=== PATIENT | female | born 1970 | race Caucasian/White ===

== ENCOUNTER → 2021-06-10 08:59 | Outpatient (BNVA) | payer MEDICARE, MEDICAID, SELFPAY | PROVIDERS: PCP Physician Assistant; Visit Provider Physician Assistant | DX: Z13.89 Encounter for screening for other disorder (principal) | CPT/HCPCS: Q3014 ==

== ENCOUNTER 2021-09-11 09:53 | Day surgery (SDC) | payer MEDICARE, MEDICAID, SELFPAY ==
[2021-09-05 09:44] VITALS: BMI 34.3
--- NOTE | 2021-09-10 10:06 | HO.ANESPROP2 ---
Documented by User: Sherron Zimmerman NP 09/10/21 10:08 HPI - Anesthesia Eval Consult details Narrative: 50yo F for Upper Endoscopy and Colonoscopy PMFSH Active Problems Active Problems: All Active Problems (Updated 09/05/21 @ 09:43 by Génesis Lagunas RN) WILLIAM (generalized anxiety disorder) (Acute) Migraines (Acute) GERD (gastroesophageal reflux disease) (Acute) Smoker (Acute) Seizure disorder (Acute) HLD (hyperlipidemia) (Acute) Screening for diabetes mellitus (DM) (Acute) Colon cancer screening (Acute) Screening mammogram, encounter for (Acute) Annual physical exam (Acute) Unknown varicella vaccination status (Acute) Obese (Acute) Lumbar back pain (Acute) Encounter for screening colonoscopy (Acute) Dysphagia (Acute) Acne rosacea (Acute) Pulmonary nodule (Acute) KEVIN (obstructive sleep apnea) (Acute) Breast cancer screening (Acute) Past Medical History Medical History Aneurysm Anxiety COVID-19 vaccine series completed Dysphagia Elevated cholesterol GERD (gastroesophageal reflux disease) Migraine Personal history of tuberculosis Pulmonary nodule Seizures Sleep apnea Family History Family History Father Medical history unknown Mother Hypertension Lymphoma Maternal Grandmother Diabetes Maternal Grandfather No problems noted. Surgical History Surgical History Amputation of toe Aneurysm H/O abdominal hysterectomy History of section History of surgery Social History Social History Housing: House Alcohol intake: current Alcohol intake frequency: holidays/special occasions only Alcohol type: hard liquor Patient Tobacco Use Status: Current someday Tobacco user Tobacco use type: Cigarette Cigarettes Per Day: 4 Second Hand Smoke Exposure: No Use of substances other than those prescribed or required for medical reasons: Yes Substance Use Frequency: Occasionally Have you been hit, kicked, punched, or otherwise hurt by someone within the past year? If so, by whom?: No Are you DNR?: No Advance Directives: No Advance Directives Information Provided: Yes (brochure mailed) Advance Directives on File: No Recently lost weight without trying: No Eating poorly because of decreased appetite: No Nutrition Risks: No Nutritional Risk Poor oral hygiene: No (upper & lower full dentures) service: No Current occupational status: disabled Cognitive needs: No Hearing needs: No Vision needs: No Meds Allergies Allergy/AdvReac Type Severity Reaction Status Date / Time aspirin [ASA] Allergy Intermediate RASH Verified 09/03/21 14:19 grapefruit [GRAPEFRUIT] Allergy Intermediate INTERACTS Verified 09/03/21 14:19 W/MED. Home Medications Medication Instructions Recorded Confirmed Last Taken Type lamotrigine 100 mg tablet 200 mg PO BID 09/02/20 09/05/21 Unknown History gabapentin 600 mg tablet 600 mg PO TID 03/03/21 09/05/21 Unknown History Exam Exam Date and Time: September 10, 2021 1006 Height,Weight and Vital Signs: Height 5 ft 5.3 in Weight 94.461 kg Assessment and Plan Assessment Anesthesia Assessment: Chart Reviewed Documented by User: Lourdes Hodge MD 09/11/21 10:48 [facility] Past Medical History Medical History Aneurysm Anxiety COVID-19 vaccine series completed Dysphagia Elevated cholesterol GERD (gastroesophageal reflux disease) Migraine Personal history of tuberculosis Pulmonary nodule Seizures Sleep apnea Functional capacity: independent ambulation Patient : No Family History Family History Father Medical history unknown Mother Hypertension Lymphoma Maternal Grandmother Diabetes Maternal Grandfather No problems noted. Family history of problems with anesthesia: No Surgical History Surgical History Amputation of toe Aneurysm H/O abdominal hysterectomy History of section History of surgery History of Problems with Anesthesia: No Social History Social History Housing: House Alcohol intake: current Alcohol intake frequency: holidays/special occasions only Alcohol type: hard liquor Patient Tobacco Use Status: Current someday Tobacco user Tobacco use type: Cigarette Cigarettes Per Day: 4 Second Hand Smoke Exposure: No Use of substances other than those prescribed or required for medical reasons: Yes Substance Use Frequency: Occasionally Have you been hit, kicked, punched, or otherwise hurt by someone within the past year? If so, by whom?: No Are you DNR?: No Advance Directives: No Advance Directives Information Provided: Yes (brochure mailed) Advance Directives on File: No Recently lost weight without trying: No Eating poorly because of decreased appetite: No Nutrition Risks: No Nutritional Risk Poor oral hygiene: No (upper & lower full dentures) service: No Current occupational status: disabled Cognitive needs: No Hearing needs: No Vision needs: No Meds Allergies Allergy/AdvReac Type Severity Reaction Status Date / Time aspirin [ASA] Allergy Intermediate RASH Verified 09/03/21 14:19 grapefruit [GRAPEFRUIT] Allergy Intermediate INTERACTS Verified 09/03/21 14:19 W/MED. Home Medications Medication Instructions Recorded Confirmed Last Taken Type lamotrigine 100 mg tablet 200 mg PO BID 09/02/20 09/05/21 Unknown History gabapentin 600 mg tablet 600 mg PO TID 03/03/21 09/05/21 Unknown History Exam Airway Mallampati Class: II TM Dist: >3cm Neck ROM: Full Partial: Upper and Lower Heart: RRR Lungs: CTA Assessment and Plan Final Anesthetic Review Family History of Problems with Anesthesia: No History of Problems with Anesthesia: No ASA Class: III Final Preanesthetic Review: No Changes in Pt Med Stat, Meds/Allgs Chart Reviewed, Consent Obtained/Reviewed and Anes Risks/Benef Reviewed Patient Risk: Intermediate Procedure Risk: Low Anesthetic Plan Anesthetic Plan: MAC: Disposition: Standard PACU
[2021-09-11 10:02] VITALS: BP 124/81; PULSE 74; RESP 16; TEMP 36.2; O2SAT 96; BMI 31.3
--- NOTE | 2021-09-11 10:09 | MHC.SHP ---
Pre-Procedural Eval Section A Date of Service: 09/11/21 Section B Chief Complaint: GERD,screening Relevant Family History (Specify if Yes): No Relevant Social History: Tobacco Use (THC use ) Present Medications: see Short Stay Collaborative assessment Medical History: Significant History (Aneurysm Anxiety COVID-19 vaccine series completed Dysphagia Elevated cholesterol GERD (gastroesophageal reflux disease) Migraine Personal history of tuberculosis Pulmonary nodule Seizures Sleep apnea) History of Previous Operations: Relevant previous surgery/procedure and date(s) (Amputation of toe Aneurysm H/O abdominal hysterectomy History of section History of surgery) Allergies: Allergies Allergy/AdvReac Type Severity Reaction Status Date / Time aspirin [ASA] Allergy Intermediate RASH Verified 09/03/21 14:19 grapefruit [GRAPEFRUIT] Allergy Intermediate INTERACTS Verified 09/03/21 14:19 W/MED. Review of Systems Sugical H&P ROS: Negative: Constitution, Cardiovascular, Respiratory, Neurological, Psychiatric, Hem-Onc, Allergic/Immunologic, Gastrointestinal, Genitourinary, Musculoskeletal, Integumentary, Endocrine and Eyes/Ears/Nose/Throat Exam Surgical H&P Exam: Normal: HEENT, Normal: Heart, Normal: Lungs, Normal: Extremities, Normal: Abdomen, Normal: Skin and Normal: Neurological Plan Diagnosis/Plan: Unchanged I have reviewed the history and physical and performed a pertinent physical examination on my patient. No changes have occurred unless specified.
[2021-09-11] MEDS: Lactated Ringers 1,000 ML 100 ML IVCONT (10:16)
--- NOTE | 2021-09-11 11:02 | PM.OP ---
Brief Operative Note Date of Service: 09/11/21 Pre-op diagnosis: GERD,screening Post-op diagnosis: same Procedure: see op note Surgeon: Antonio Hooks MD Anesthesia: MAC Was an Recordist Chief used for this Procedure?: No Estimated blood loss (mL): 0 Condition: stable Disposition: PACU
--- NOTE | 2021-09-11 11:03 | W.PM.OPN ---
Operative Note Operative Note Date of Service: 09/11/21 Narrative: Operative Information Procedure Description: EGD, Colonoscopy Indication: GERd, colon screening Anesthesia: MAC FLEXIBLE TRANSORAL UPPER GASTROINTESTINAL ENDOSCOPY AND COLONOSCOPY PROCEDURE NOTE UPPER ENDOSCOPY Consent: Indications for the procedure and potential complications of bleeding, perforation, reaction to medications and missed diagnosis were discussed with the patient and informed consent was obtained. Instrument: Olympus GIF H 190 J mid size upper endoscope Monitoring: Vital signs and clinical assessment, continuous EKG monitoring, Pulse oximetry, Carbon Dioxide monitoring and blood pressure monitoring were done throughout the procedure. Procedure: The patient was placed in the left lateral decubitis position and pre-procedure medications were administered and a bite block was placed. The endoscope was inserted into the mouth and advanced under direct vision to the third part of duodenum. A careful inspection was made as the upper endoscope was withdrawn including a retroflexed examination of the proximal stomach; Findings and interventions are described below. Findings: Larynx:normal Esophagus: GE junction at 34 cm, diaphragm hiatus at 37 cm, consistent with 3 cm sliding hiatal hernia, some ringing of the esophagus noted, bx taken from GEJ, distal and proximal esophagus in separate jars Stomach: Patchy erythema mucosa. Biopsies were obtained. Grade 2 flap valve on retroflexed examination of the cardia. Duodenum: Bulbar duodenitis, bx taken Intervention: Biopsies as noted above COLONOSCOPY Instrument: Olympus variable stiffness pediatric scope 190L Colonoscopy Monitoring: Vital signs and clinical assessment, continuous EKG monitoring, Pulse oximetry, Carbon Dioxide monitoring and blood pressure monitoring were done throughout the procedure. Colon withdrawal time was 17 minutes. Procedure: The patient was placed in the left lateral decubitis position and pre-procedure medications were administered. After a digital rectal examination of the ano-rectum, the video colonoscope was inserted into the rectum and advanced through the colon to the cecum/TI. The colonoscope was slowly withdrawn in a retrograde panoramic fashion and the colon mucosa was carefully examined including a retroflexed view of the rectum. Findings and interventions are described below. Procedure Difficulty:easy Findings: Terminal Ileum-normal Cecum:normal Ascending Colon: normal Transverse Colon -normal Descending Colon:normal Sigmoid Colon: normal Rectum: Retroflexion with moderate sized internal hemorrhoids, grade I, x 8 sessile polyps removed 8-10 mm in size using cold snare Anorectum - normal Colon preparation: [place] Bowel Preparation Scale Right colon; 2 Transverse colon: 3 Left colon; 3 (0 = Unprepared colon segment with mucosa not seen due to solid stool that cannot be cleared. 1 = Portion of mucosa of the colon segment seen, but other areas of the colon segment not well seen due to staining, residual stool and/or opaque liquid. 2 = Minor amount of residual staining, small fragments of stool and/or opaque liquid, but mucosa of colon segment seen well. 3 = Entire mucosa of colon segment seen well with no residual staining, small fragments of stool or opaque liquid) Impression and Post Procedure Diagnosis: Endoscopy Findings: gastritis duodenitis hiatal hernia Colonoscopy Findings: polyps internal hemorrhoids Plan: Await Pathology results Repeat Colonoscopy in 1-2 years due to polyp burden or earlier if clinically indicated High fiber diet leaflet avoid straining at stool, epsom salts and sitz bath, anusol supps or cream Reflux precautions smoking cessation advice consider PPI instead of H2 billy Above findings were reviewed with the patient and relevant handouts were provided if indicated.
[2021-09-11 11:30] VITALS: BP 114/77; PULSE 67; RESP 16; TEMP 36.4; O2SAT 96
[2021-09-11 11:45] VITALS: BP 120/70; PULSE 65; RESP 18; TEMP 36.1; O2SAT 95
--- NOTE | 2021-09-11 11:58 | HO.POSTANES ---
Post Anesthesia Evaluation Post Anesthesia Evaluation Vital Signs: Vital Signs Temp Pulse Resp BP Pulse Ox O2 Del Method 09/11/21 11:45 97 F 65 18 120/70 95 Room Air 09/11/21 11:30 97.5 F 67 16 114/77 96 Room Air 09/11/21 10:02 97.1 F 74 16 124/81 96 Room Air Anesthesia: Monitored Mental Status: Awake Pain Control: Satisfactory Nausea/Vomiting: None Hydration: Adequate Anesthesia-Related Issues: No Anes. Related Issues
== END 2021-09-11 12:20 | disposition home or self-care (01) ==
PROVIDERS: PCP Physician Assistant; Visit Provider Internal Medicine Gastroenterology
PROC: (CPT 45385; principal; 2021-09-11 11:00)
DX: Z12.11 Encounter for screening for malignant neoplasm of colon (principal); D12.8 Benign neoplasm of rectum; K64.0 First degree hemorrhoids; R13.10 Dysphagia, unspecified; K29.50 Unspecified chronic gastritis without bleeding; K29.80 Duodenitis without bleeding; K44.9 Diaphragmatic hernia without obstruction or gangrene; K21.9 Gastro-esophageal reflux disease without esophagitis; G47.33 Obstructive sleep apnea (adult) (pediatric); G40.909 Epilepsy, unspecified, not intractable, without status epilepticus; Z79.899 Other long term (current) drug therapy; Z88.8 Allergy status to other drugs, medicaments and biological substances; F17.210 Nicotine dependence, cigarettes, uncomplicated
CPT/HCPCS: 45385; 43239; 88305; 88342

== ENCOUNTER → 2021-09-25 11:04 | Outpatient (BNVA) | payer MEDICARE, MEDICAID, SELFPAY | PROVIDERS: PCP Physician Assistant; Visit Provider Physician Assistant | DX: K21.9 Gastro-esophageal reflux disease without esophagitis (principal); A04.8 Other specified bacterial intestinal infections; K63.5 Polyp of colon | CPT/HCPCS: 99212 ==

== ENCOUNTER → 2021-10-15 10:51 | Outpatient (REF) | payer MEDICARE, SELFPAY ==
--- NOTE | ~2021-10-15 | MM_ITS ---
EXAMINATION: MM SCREENING DIGITAL BREAST TOMOSYNTHESIS, BILATERAL CLINICAL INFORMATION: Screening. Asymptomatic. The lifetime risk of breast cancer based on the Tyrer-Cuzick Model is 4.9%. COMPARISON: Mammography: April 25, 2018 and studies dating back to December 25, 2005 TECHNIQUE: Digital breast tomosynthesis is performed in both the craniocaudal and mediolateral oblique views along with computer-aided detection (CAD). Synthesized 2D images are generated from the tomosynthesis. FINDINGS: The breasts are heterogeneously dense, which may obscure small masses (ACR BI-RADS breast composition Category c). There are no significant masses, abnormal calcifications, or other abnormalities. MM/MM tomosynthesis screening BI IMPRESSION: There are no significant changes from prior study. ASSESSMENT: BI-RADS 1: Negative RECOMMENDATION: Routine annual mammography screening. This patient's information was entered into a reminder system with a target due date for their next mammogram.
[2021-10-15 12:11] LABS: Hematocrit 40.6 % (37.0-47.0); Hemoglobin 13.7 g/dl (12.0-16.0); Mean Corpuscular HGB Conc 33.7 g/dl (31.0-35.0); Mean Corpuscular Hemoglobin 30.4 pg (27.0-33.0); Mean Platelet Volume 9.7 fL (9.4-12.3); Platelet Count 279 X10*3/uL (160-400); Red Blood Count 4.51 X10*6/uL (4.20-5.50); Red Cell Distribution Width 12.9 % (11.0-16.0)
[2021-10-15 12:52] LABS: Alanine Aminotransferase 26 U/L (0-31); Albumin Level 4.6 g/dL (3.5-5.0); Alkaline Phosphatase 116 U/L (39-117); Anion Gap 13 (12-20); Aspartate Amino Transferase 19 U/L (5-31); Bilirubin Total 0.5 mg/dL (0.0-1.0); Blood Urea Nitrogen 13 mg/dL (9-16); Calcium 9.5 mg/dL (8.4-10.2); Carbon Dioxide 27 mmol/L (22-29); Chloride 104 mmol/L (96-108); Cholesterol 189 mg/dL; Estimated Glomerular Filt Rate > 60; Glucose Fasting 91 mg/dL (60-99); HDL Cholesterol 71 mg/dL; LDL Cholesterol Calculated 99 mg/dl; Potassium 4.3 mmol/L (3.3-5.1); Sodium 140 mmol/L (135-145); Total Protein 7.7 g/dL (6.5-8.0); Triglycerides 97 mg/dL
[2021-10-15 13:13] LABS: TSH reflex Free T4 0.96 uIU/mL (0.32-4.0)
== END ==
LOC: HO.SL 10:51
PROVIDERS: PCP Physician Assistant; Visit Provider Physician Assistant
DX: Z12.31 Encounter for screening mammogram for malignant neoplasm of breast (principal); G47.33 Obstructive sleep apnea (adult) (pediatric); E66.09 Other obesity due to excess calories; Z68.34 Body mass index [BMI] 34.0-34.9, adult; E78.2 Mixed hyperlipidemia
CPT/HCPCS: 36415; 77063; 77067; 80053; 80061; 84443; 85027; 95806

== ENCOUNTER → 2021-11-20 12:13 | Outpatient (BNVA) | payer MEDICARE, SELFPAY | PROVIDERS: PCP Physician Assistant; Visit Provider Physician Assistant | DX: A04.8 Other specified bacterial intestinal infections (principal) | CPT/HCPCS: 99211 ==

== ENCOUNTER 2021-11-20 16:54 | Outpatient (REF) | payer MEDICARE, SELFPAY ==
[2021-11-21 13:40] LABS: H Pylori Breath Test Negative (Negative)
== END 2021-11-20 16:55 | disposition home or self-care (01) ==
LOC: HO.LNP 16:54
PROVIDERS: Visit Provider Physician Assistant
DX: A04.8 Other specified bacterial intestinal infections (principal)
CPT/HCPCS: 83013

== ENCOUNTER 2022-10-22 13:39 | Outpatient (AMB) | payer MEDICARE, MEDICAID, SELFPAY ==
[2022-10-22 13:48] VITALS: BP 142/82; PULSE 70; BMI 34.8
--- NOTE | 2022-10-22 13:48 | A.OFFVIS_ITS ---
Intake Vital Signs 10/22/22 13:48 Height 5 ft 3 in Weight 196 lb 3.382 oz BMI 34.8 BP 142/82 H Blood Pressure Location Lt brachial Position Sitting Pulse 70 Intake Visit Reasons: 1 yr follow up rediscuss colo/EGD Intake Note: Melissa presents in the office as a 1 year follow up. CC: No concerns today Allergies aspirin [ASA] Allergy (Intermediate, Verified 10/22/22 13:50) RASH grapefruit [GRAPEFRUIT] Allergy (Intermediate, Verified 10/22/22 13:50) INTERACTS W/MED. Medication List - Last Reconciled 10/22/22 by Angella Jennings PA-C atorvastatin 20 mg PO DAILY butalbital-acetaminophen 50-325 mg 1 tab PO BID PRN 10 days cyclobenzaprine 10 mg PO TID fluticasone propionate 50 mcg/actuation 1 spray intranasal DAILY gabapentin 600 mg PO TID lamotrigine 200 mg PO BID lamotrigine mg PO omega-3 fatty acids-fish oil 340-1,000 mg 1 cap PO DAILY pantoprazole 40 mg PO DAILY sertraline 25 mg PO DAILY sumatriptan succinate 50 mg PO BID PRN varenicline 1 mg PO BID venlafaxine ER 75 mg PO DAILY HPI HPI Comments History of Present Illness Details A 52-year-old female personal history of colon polyps female follows up to discuss repeat colonoscopy She has no bowel issues Acid reflux well controlled - pantoprazole 40 mg- No respiratory cardiac issues-KEVIN she does not use CPAP she follows a PCP No nausea, vomiting, hematemesis, hematochezia fever chills PFSH Medical History Aneurysm Anxiety COVID-19 vaccine series completed Dysphagia Elevated cholesterol GERD (gastroesophageal reflux disease) Migraine Personal history of tuberculosis Pulmonary nodule Seizures Sleep apnea Surgical History Amputation of toe Aneurysm H/O abdominal hysterectomy History of section History of esophagogastroduodenoscopy (EGD) History of surgery Hx of colonoscopy Family History Father Medical history unknown Mother Hypertension Lymphoma Maternal Grandmother Diabetes Maternal Grandfather No problems noted. Social History Housing: House Alcohol intake: current Alcohol intake frequency: holidays/special occasions only Alcohol type: hard liquor Patient Tobacco Use Status: Former Tobacco user Tobacco use type: Cigarette e-Cigarette/Vaping Use: Never Used Second Hand Smoke Exposure: No service: No Current occupational status: disabled Cognitive needs: No Hearing needs: No Vision needs: No Review of Systems Const All systems reviewed & are unremarkable except as noted in HPI and below Card Denies chest pain and Denies dyspnea Resp Denies dyspnea GI Denies hematochezia, Denies change in bowel habits, Denies nausea and Denies vomiting Physical Exam Vital Signs: Last Vital Signs Pulse 70 10/22/22 13:48 BP 142/82 H 10/22/22 13:48 BMI result Body Mass Index 34.8 Const General: cooperative, healthy appearing, comfortable and no acute distress Orientation/consciousness: patient oriented x3 Limitations: no limitations Eyes Sclerae: sclerae normal Resp Effort & Inspection: normal respiratory effort and able to speak in complete sentences Auscultation: clear to auscultation bilaterally Cardio Rate: regular rate Rhythm: regular rhythm Heart sounds: S1 normal heart sound present and S2 normal heart sound present GI Palpation (GI): Soft to palpation and nontender Auscultation: normal bowel sounds Skin General skin exam: no rashes or lesions noted Neuro General: patient oriented x3 Extrem General: Yes full ROM Psych Appearance: grossly normal and well kempt Mental Status: mental status grossly normal Speech and movement: Normal speech and movement present and Clear speech present Affect: normal affect Attitude: cooperative Thought process: Normal thought process present Thought content: Normal thought content present Insight: Good insight present (Psych) Judgement: Good judgement present (Psych) Results Reviewed Results Reviewed: Impression and Post Procedure Diagnosis: Endoscopy Findings: gastritis duodenitis hiatal hernia Colonoscopy Findings: polyps internal hemorrhoids Plan: Await Pathology results Repeat Colonoscopy in 1-2 years due to polyp burden or earlier if clinically indicated High fiber diet leaflet avoid straining at stool, epsom salts and sitz bath, anusol supps or cream Reflux precautions smoking cessation advice consider PPI instead of H2 billy Above findings were reviewed with the patient and relevant handouts were provided if indicated. Name:Melissa Murray Age/Sex: 50/F Attending: Antonio Hooks MD : 1970 Submitted by: Antonio Hooks MD Copies to: Zackary Hilton PA-C MR #: [id number] ? Status: [facility] Collected: 09/11/21 Location: [facility] Received: 09/11/21 Diagnosis A.? Colon, eight rectal polyps:? -Tubular adenoma, one; negative for high-grade dysplasia and carcinoma.? -Hyperplastic polyps, multiple. B.? Duodenum, biopsy: -Duodenal mucosa with preserved villi, prominent Zoya's glands, and no specific change. C.? Stomach, biopsy: -Chronic Helicobacter pylori gastritis with focal mild activity; negative for intestinal metaplasia and dysplasia. D.? Stomach, biopsy: -Chronic Helicobacter pylori gastritis with focal minimal activity; negative for intestinal metaplasia and dysplasia.? E.? Gastroesophageal junction, biopsy: -Columnar gastric cardia-fundic type mucosa with mild chronic inactive inflammation; no squamous mucosa present; negative for intestinal metaplasia and dysplasia. F.? Esophagus, distal, biopsy: -Squamous mucosa with focal intraepithelial neutrophils and eosinophils (up to 7 per high-power field), compatible with reflux esophagitis; no columnar mucosa present.? G.? Esophagus, proximal, biopsy: -Squamous mucosa with no specific change; no columnar mucosa present. Clinical History Pre-Op Dx:? Dysphagia, colon cancer screening Post-Op Dx: Colon polyps, internal hemorrhoids, gastritis, duodenitis, hiatal hernia Microscopic Description Microscopic sections reviewed.? Immunohistochemical stains for H. pylori on C and D are positive with appropriate control. Material Received Assessment & Plan Assessment & Plan (1) Colon polyps: Comment: multiple adenoma, multiple hyperplastic- repeat Code(s): K63.5 - Polyp of colon Plan Due for 1 year repeat - polyp surveillance colonoscopy- MG prep- Dr Hooks Orders: Orders Colonoscopy - GI Use Only 10/22/22 K63.5 - Polyp of colon Medications: New bisacodyl (Dulcolax (bisacodyl)) Take 4 tablets by mouth at 12:00pm the day before your procedure. 20 mg (4 x 5 mg) PO ONCE 4 tabs 0RF colonoscopy prep 1 day Z12.11 - Encounter for screening for malignant neoplasm of colon polyethylene glycol 3350 (Miralax) Take as directed by mouth the day before your procedure. 238 grams PO ONCE 238 grams 0RF 1 day Changed From cyclobenzaprine 10 mg PO TID 7 days 21 tabs 0RF M54.50 - Low back pain, unspecified To cyclobenzaprine 10 mg PO TID M54.50 - Low back pain, unspecified From sertraline 25 mg PO DAILY 90 days 90 tabs 2RF F41.1 - Generalized anxiety disorder To sertraline 25 mg PO DAILY F41.1 - Generalized anxiety disorder From sumatriptan succinate 50 mg PO BID PRN 9 tabs 3RF migraine headache G43.909 - Migraine, unspecified, not intractable, without status migrainosus To sumatriptan succinate 50 mg PO BID PRN G43.909 - Migraine, unspecified, not intractable, without status migrainosus From varenicline 1 mg PO BID 28 days 56 tabs 1RF F17.200 - Nicotine dependence, unspecified, uncomplicated To varenicline 1 mg PO BID F17.200 - Nicotine dependence, unspecified, uncomplicated From venlafaxine ER 75 mg PO DAILY 90 days 90 tabs 2RF F41.1 - Generalized anxiety disorder To venlafaxine ER 75 mg PO DAILY F41.1 - Generalized anxiety disorder Refilled pantoprazole 40 mg PO DAILY 90 tabs 1RF Patient Instructions: Polyp surveillance colonoscopy reflux precautions- avoid culprits panntoprazole 40 mg- Call with concerns- Coding Level of Care Code Est Pt Level 3 (89236) Diagnoses Colon polyps K63.5 Time Spent (min) 30
== END 2022-10-22 14:23 | disposition home or self-care (01) ==
PROVIDERS: PCP Physician Assistant; Visit Provider Physician Assistant
DX: K63.5 Polyp of colon (principal)
CPT/HCPCS: 99213

== ENCOUNTER → 2022-10-22 13:39 | Outpatient (BNVA) | payer MEDICARE, MEDICAID, SELFPAY | PROVIDERS: PCP Physician Assistant; Visit Provider Physician Assistant | DX: Z86.010 Personal history of colon polyps (principal) | CPT/HCPCS: 99212 ==

== ENCOUNTER 2022-11-02 10:48 | Outpatient (REF) | payer MEDICARE, MEDICAID, SELFPAY ==
--- NOTE | ~2022-11-02 | CT_ITS ---
EXAMINATION: CT CHEST WITHOUT CONTRAST CLINICAL INFORMATION: Lung nodule. COMPARISON: None available within our electronic picture archive. TECHNIQUE: Multidetector volumetric CT imaging of the chest was done. Axial MIP volume rendering provided. Sagittal and coronal reformatted images were obtained. This CT examination was performed using dose optimization techniques as appropriate, variously including the following: *Automated exposure control *Adjustment of mA and/or kV according to patient size (this includes techniques or standardized protocols for targeted exams where dose is matched to indication/reason for exam; i.e. extremities or head) *Use of iterative reconstruction technique DLP: 299 mGy-cm FINDINGS: LUNGS AND PLEURA: There is mild respiratory motion. There is a small linear opacity of atelectasis in the posterior right upper lobe. No mass, consolidation or pleural effusion. No interstitial lung disease. Several calcified pulmonary granulomas are present, including within anteromedial right upper lobe, posteromedial right lower lobe, posteromedial left apex (image 75), anterior left upper lobe (image 129, series 5) and medial basal segment of left lower lobe. It is difficult to determine whether the micronodule in the right middle lobe is calcified or noncalcified (image 252, series 5). Small 0.2 cm noncalcified nodule is present at the left apex (image 48, series 5). Noncalcified subpleural nodule of less than 0.4 cm average diameter is present at the left lateral lung base (image 296). There is no suspicious lung nodule. No chest CT imaging follow-up recommended, if following Fleischner Society guidelines. CARDIOVASCULAR: The heart size is normal. No pericardial effusion. Mild atherosclerotic calcification of the aortic arch. Pulmonary arteries and thoracic aorta are normal in caliber. CORONARY ARTERY CALCIFICATION: There is mild atherosclerotic calcification of coronary arteries. MEDIASTINUM AND LOWER NECK: No mediastinal mass. The esophagus and thyroid gland are unremarkable. LYMPHATICS: No pathologic sized lymph nodes. UPPER ABDOMEN: Adrenal glands are normal. 4 cm simple cyst of the upper pole of the right kidney. No renal imaging follow-up is recommended for a simple cyst. SKELETAL: Thoracic vertebra have normal height and alignment. Mild spondylosis of the thoracic spine. No acute or suspicious osseous abnormality. CT/CT chest wo IV con IMPRESSION: Small calcified and noncalcified pulmonary nodules are present. However, no suspicious-appearing lung nodule, mass or lymphadenopathy.
== END 2022-11-02 10:49 | disposition home or self-care (01) ==
LOC: HO.CT 10:48
PROVIDERS: PCP Physician Assistant; Visit Provider Physician Assistant
DX: R91.1 Solitary pulmonary nodule (principal)
CPT/HCPCS: 71250

== ENCOUNTER 2022-12-03 10:43 | Outpatient (AMB) | payer MEDICARE, SELFPAY ==
[2022-12-03 10:51] VITALS: BP 130/82; PULSE 70; RESP 16; O2SAT 98; BMI 34.1
--- NOTE | 2022-12-03 10:51 | A.OFFPC_ITS ---
Vital Signs 12/03/22 10:51 Height 5 ft 3 in Weight 192 lb 6 oz BMI 34.1 BP 130/82 Blood Pressure Location Lt brachial Position Sitting Respiration 16 Pulse 70 Pulse Source Pulse Oximeter Pulse Oximetry (%) 98 Oxygen Delivery Method Room Air Intake Visit Reasons: phy Intake Note: Patient is here today for a physical. Rn Digestive Required: No Accompanied by: Self / Same As Patient Allergies aspirin [ASA] Allergy (Intermediate, Verified 12/03/22 11:11) RASH grapefruit [GRAPEFRUIT] Allergy (Intermediate, Verified 12/03/22 11:11) INTERACTS W/MED. venlafaxine Adverse Reaction (Intermediate, Verified 12/03/22 11:31) Agitated Medication List - Last Reconciled 12/03/22 by Zackary Hilton PA-C atorvastatin 20 mg PO DAILY butalbital-acetaminophen 50-325 mg 1 tab PO BID PRN 10 days cyclobenzaprine 10 mg PO TID fluticasone propionate 50 mcg/actuation 1 spray intranasal DAILY gabapentin 600 mg PO TID lamotrigine 100 mg PO BID lamotrigine mg PO omega-3 fatty acids-fish oil 340-1,000 mg 1 cap PO DAILY pantoprazole 40 mg PO DAILY sertraline 25 mg PO DAILY 90 days sumatriptan succinate 50 mg PO BID PRN 30 days venlafaxine ER 75 mg PO DAILY Tobacco use date assessed: 12/03/22 Dental Screening Dental Screen Date: 12/03/22 Did you have a dental visit in the last 12 months?: Yes Did you have a dental problem in the last 6 months where you did not have access to dental care?: No Was dental information given to patient?: Patient has dentist HPI phy HPI Details Melissa is a 51-year-old female being evaluated today via telephone only. ? Patient has a pmhx significant for tobacco dependence, sz disorder, depression, KEVIN, hypersomnia, Brain anuerysm with coiling. Concern--> ports having lower back localized pain worse when sitting for long periods of time standing for long periods of time. MRI of lower lumbar spine done last year showing L5-S1 disc herniation. ? .. ? Sz disorder: Does report having focused sz, Is on anti- epileptics.? Has now been seening another Neurology in [place] ( [facility]) is has been sent for ambulatory EEGs..? Her lamotrigine was increased.? Has gotten a CT of brain showing evidence previous surgical clips from aneurysm repair. She is awaiting MRI brain to be covered by insurance No reports of recent seizures activity. Fortunately has gained a significant amount of weight over the last year ? secondary to antiseizure medication . Tabacco dependence: Has quit smoking over the last year? has Chantix available to our though does not currently use this medication. ? .. ? Depression: well controlled. Patient feels she is on the right dose of her SNRI. She also reports her depression has been better with the addition of Chantix. No reports of SI/HI. ? .. ? Migraines:? Now followed by Neurology,? Patient has seldomly been using firocet which works well. Has gotten good relief from Imitrex . No aura reported with migraines.?? Colonoscopy: Followed by [facility], has had polyps in needed 1 year follow-up. mammo: need Mammo [employer]: Had total hysterectomy Vaccine: UTD with COVID, up-to-date with tetanus up-to-date , willing to get flu vaccine [facility] Medical History (Updated 12/03/22 @ 11:26 by Zackary Hilton PA-C) H. pylori infection COVID-19 vaccine series completed Aneurysm Migraine GERD (gastroesophageal reflux disease) Anxiety Seizures Pulmonary nodule Dysphagia Elevated cholesterol Personal history of tuberculosis Sleep apnea Surgical History History of esophagogastroduodenoscopy (EGD) Hx of colonoscopy History of surgery Aneurysm Amputation of toe H/O abdominal hysterectomy History of section Family History Father Medical history unknown Mother Hypertension Lymphoma Maternal Grandmother Diabetes Maternal Grandfather No problems noted. Social History (Updated 12/03/22 @ 11:22 by Zackary Hilton PA-C) Housing: House Alcohol intake: current Alcohol intake frequency: holidays/special occasions only Alcohol type: hard liquor Patient Tobacco Use Status: Former Tobacco user Quit Date: 2020 Tobacco use type: Cigarette e-Cigarette/Vaping Use: Never Used Second Hand Smoke Exposure: No service: No Current occupational status: disabled Cognitive needs: No Hearing needs: No Vision needs: No Questionnaire PHQ-9 Over the last 2 weeks, how often have you been bothered by any of the following problems? 1. Little interest or pleasure in doing things: not at all 2. Feeling down, depressed, or hopeless: not at all 3. Trouble falling or staying asleep, or sleeping too much: not at all 4. Feeling tired or having little energy: not at all 5. Poor appetite or overeating: not at all 6. Feeling bad about yourself - or that you are a failure or have let yourself or your family down: not at all 7. Trouble concentrating on things, such as reading the newspaper or watching television: not at all 8. Moving or speaking so slowly that other people could have noticed. Or the opposite - being so fidgety or restless that you have been moving around a lot more than usual: not at all 9. Thoughts that you would be better off or of hurting yourself in some way: not at all Total score: 0 Depression Screening Interpretation: Negative 69737 - PHQ-9 Billing: Yes Source: Developed by Drs. Yuri Vann, Yanira King, Heber Sepulveda and colleagues, with an educational bebe from [employer]. Thrive Questionnaire Date Thrive assessed: 12/03/22 I am a: Patient What is your living situation today?: I have a steady place to live Within the past 12 months, did the food you bought not last and you didn't have the money to get more?: Never true Within the past 12 months, did you worry whether your food would run out before you got money to buy more?: Never true Do you have trouble paying for medicines?: No Do you have trouble getting transportation to medical appointments?: No Do you have trouble paying your heating and electricity bill?: No Do you have trouble taking care of your child, family member or friend?: No Do you have trouble with day-to-day activities such as bathing, preparing meals, shopping, managing finances, etc.?: No Are you currently unemployed and looking for a job?: No Are you interested in more education?: No Please select the resources that you would like help with: None AUDIT C Alcohol Use Questionnaire (AUDIT-C) 1. How often do you have a drink containing alcohol?: Monthly or less 2. How many drinks containing alcohol do you have on a typical day when you are drinking?: 1 or 2 3. How often do you have six or more drinks on one occasion?: Never Total Score: 1 WILLIAM-7 AMB Questionnaire WILLIAM-7 Date WILLIAM - 7 assessed: 12/03/22 Feeling nervous, anxious, or on edge: 0 = Not at all Not being able to stop or control worryin = Not at all Worrying too much about different things: 0 = Not at all Trouble relaxin = Not at all Being so restless that it is hard to sit still: 0 = Not at all Becoming easily annoyed or irritable: 0 = Not at all Feeling afraid as if something awful might happen: 0 = Not at all Total WILLIAM-7 score (0-4 normal; 5-9 mild; 10-14 moderate; 15-21 severe): 0 Source: Developed by Drs. Yuri Vann, Yanira King, Heber Sepulveda and colleagues, with an educational bebe from [employer]. WILLIAM-7 Assessment Billing WILLIAM-7 Assessment Tool: WILLIAM-7 Assessment [id number] Review of Systems Const Denies body aches, Denies chills, Denies excessive sweating, Denies fatigue, Denies fever(s) and Denies headache(s) Eyes Denies blurry vision ENT Denies dysphagia, Denies vertigo, Denies dizziness, Denies headache(s), Denies hearing loss and Denies tinnitus Card Denies chest pain, Denies chest pain with activity, Denies syncope, Denies irregular heart rhythm and Denies dyspnea Resp Denies chest congestion, Denies cough, Denies hemoptysis, Denies dyspnea and Denies wheezing GI Denies abdominal pain, Denies melena, Denies hematochezia, Denies coffee ground emesis, Denies dysphagia, Denies diarrhea, Denies nausea and Denies vomiting Denies urinary frequency, Denies dysuria, Denies urinary hesitancy and Denies urinary urgency Musc Denies arthralgias, Denies limited range of motion, Denies muscle cramps and Denies muscle weakness Skin/Breast Denies rash and Denies skin ulcer Neuro Denies Abnormal speech present, Denies confusion, Denies vertigo, Denies dizziness, Denies syncope, Denies headache(s), Denies memory loss and Denies seizure-like activity Psych Denies anxiety, Denies confusion, Denies depression, Denies memory loss, Denies panic attacks and Denies paranoia Endo Denies excessive sweating, Denies fatigue, Denies flushing, Denies polydipsia and Denies polyuria Aller/Immun Denies wheezing Physical exam (Primary Care) Vital Signs: Last Vital Signs Pulse 70 12/03/22 10:51 Resp 16 12/03/22 10:51 BP 130/82 12/03/22 10:51 Pulse Ox 98 12/03/22 10:51 Oxygen Delivery Method Room Air 12/03/22 10:51 BMI result Body Mass Index 34.1 Tobacco/Smoking Status: Tobacco use Status Tobacco use date assessed 12/03/22 12/03/22 11:01 Patient Tobacco Use Status Former Tobacco user 12/03/22 11:22 Tobacco use type Cigarette 12/03/22 11:22 e-Cigarette/Vaping Use Never Used 12/03/22 11:22 PHQ-9: PHQ-9 Score PHQ-9: Total score 0 12/03/22 13:30 Depression Screening Interpretation: Negative Thrive Assessment: Date of Thrive Assessment Date Thrive assessed 12/03/22 12/03/22 11:01 Const General: cooperative, comfortable, no acute distress, alert and awake; No confusion Orientation/consciousness: oriented to person, oriented to place, patient oriented x3 and No confusion HENMT Head: Yes normocephalic Ears: external ears normal and TM's normal bilaterally Face and sinus: No sinus tenderness Mouth: Normal oral and palatal mucosa present and tongue normal Teeth and gingiva: dentition normal and gingiva normal Throat: Yes posterior oropharynx normal, Yes tonsils normal and Yes uvula midline Eyes Conjunctivae: conjunctivae normal Sclerae: sclerae normal Pupils: Equal, round and reactive pupils present EOM: EOMs intact bilaterally Direct Ophthalmoscopy: No no photophobia Neck Neck: Yes no lymphadenopathy, No tender and Yes no JVD Thyroid: Thyroid normal Carotids: no bruits Chest Chest palpation & inspection: no tenderness Resp Effort & Inspection: normal respiratory effort, no audible wheezes, not labored and no stridor Auscultation: no crackles, no rales, no rhonchi and no wheezes Cardio Jugular venous distension: no JVD Rate: regular rate, not bradycardic and not tachycardic Rhythm: regular rhythm Bruits: no carotid bruits Peripheral pulses: Peripheral pulses 2+ throughout GI Inspection: Yes normal to inspection, No abdominal wall ecchymosis and No visible herniation Palpation (GI): Soft to palpation, nontender, no guarding, not rigid and No hepatosplenomegaly present Auscultation: normoactive bowel sounds General: Yes no CVA tenderness Back/Spine/Pelvis Back: no CVA tenderness and No back tenderness Cervical Spine: cervical ROM normal Thoracic/Lumbar Spine: thoracic and lumbar spine normal to inspection, straight leg raise negative bilaterally, No thoraco-lumbar ROM limited and No lumbar spinal tenderness Skin Lesions: no lesions Rashes: no rashes Wounds: no wounds Neuro General: oriented to person, oriented to place, patient oriented x3, CN's II-XI intact bilaterally and No confusion Cranial nerves: Yes Equal, round and reactive pupils present and Yes Normal accommodation reflex present Cognition (Neuro): normal cognition Speech: No Abnormal speech present Gait exam (Neuro): Normal gait present Motor exam (neuro): 5/5 motor strength present throughout Extrem Right upper extremity: full ROM; no cyanosis Left upper extremity: full ROM; no cyanosis Right lower extremity: no edema Left lower extremity: no edema Psych Appearance: grossly normal Mental Status: mental status grossly normal Affect: normal affect Attitude: cooperative Thought process: Normal thought process present Assessment and Plan Assessment & Plan (1) Annual physical exam: Code(s): Z00.00 - Encounter for general adult medical examination without abnormal findings (2) Seizure disorder: Code(s): G40.909 - Epilepsy, unspecified, not intractable, without status epilepticus Plan: Patient now followed by neurologist. Has been started on seizure medication and up titrating per response. Has not had a recent seizure. (3) HLD (hyperlipidemia): Code(s): E78.5 - Hyperlipidemia, unspecified Qualifiers: Hyperlipidemia type: mixed hyperlipidemia Qualified Code(s): E78.2 - Mixed hyperlipidemia Plan: Patient's most recent lipid panel showing good control of total cholesterol and LDL. Continues on moderate dose statin. Goal LDL to remain below 130 (4) Lumbar stenosis: Code(s): M48.061 - Spinal stenosis, lumbar region without neurogenic claudication Qualifiers: Neurogenic claudication status: without neurogenic claudication Qualified Code(s): M48.061 - Spinal stenosis, lumbar region without neurogenic claudication Plan: As per HPI MRI showing L5-S1 disc herniation. Continues to have lower back pain with without any radiculopathy down lower extremities. Will likely benefit from physical therapy and patient agrees. Continues to use [id number]-nzaigeg ibuprofen and p.r.n. use of cyclobenzaprine for back spasms. (5) Colon polyps: Comment: multiple adenoma, multiple hyperplastic- repeat Code(s): K63.5 - Polyp of colon Qualifiers: Colon location: ascending Colon polyp type: adenomatous Qualified Code(s): D12.2 - Benign neoplasm of ascending colon Plan: Need for repeat colonoscopy due to polyps. (6) WILLIAM (generalized anxiety disorder): Code(s): F41.1 - Generalized anxiety disorder Plan: She reports her depression anxiety has been on an off . She believes the sertraline is helpful though only partially. Will increase her sertraline dose to 50 mg daily. Orders: Orders PT Evaluation and Treatment Today M48.061 - Spinal stenosis, lumbar region without neurogenic claudication, M51.9 - Unspecified thoracic, thoracolumbar and lumbosacral intervertebral disc disorder Varicella IgG Antibody Today Z78.9 - Other specified health status Lipid Panel Today E78.2 - Mixed hyperlipidemia Comprehensive Keo. Panel Fast Today Z13.1 - Encounter for screening for diabetes mellitus Medications: New sertraline 50 mg PO DAILY 90 days 90 tabs 1RF F41.1 - Generalized anxiety disorder Discontinued sertraline Discontinued Reason: Doctor's Order 25 mg PO DAILY 90 days 90 tabs 3RF F41.1 - Generalized anxiety disorder Coding Level of Care Code Est Pt Prev Care 40-64y(07005) Diagnoses Annual physical exam Z00.00 Seizure disorder G40.909 Mixed hyperlipidemia E78.2 Hyperlipidemia type: mixed hyperlipidemia Spinal stenosis of lumbar region without neurogenic claudication M48.061 Neurogenic claudication status: without neurogenic claudication Adenomatous polyp of ascending colon D12.2 Colon location: ascending Colon polyp type: adenomatous WILLIAM (generalized anxiety disorder) F41.1 Additional Codes WILLIAM-7 Assessment Billing - WILLIAM-7 Assessment Tool: WILLIAM-7 Assessment [id number] ([id number])
== END 2022-12-03 11:49 | disposition home or self-care (01) ==
PROVIDERS: Visit Provider Physician Assistant
DX: Z00.00 Encounter for general adult medical examination without abnormal findings (principal); G40.909 Epilepsy, unspecified, not intractable, without status epilepticus; E78.2 Mixed hyperlipidemia; M48.061 Spinal stenosis, lumbar region without neurogenic claudication; D12.2 Benign neoplasm of ascending colon; F41.1 Generalized anxiety disorder
CPT/HCPCS: 99396

== ENCOUNTER 2023-03-19 08:47 | Outpatient (RCR) | payer MEDICARE, MEDICAID, SELFPAY ==
--- NOTE | 2023-03-19 09:36 | MHC.PT.EP ---
[facility] [place] Office [place] Office [place] Office [address] Syed Armendariz [address] [phone] F: [phone] F: [phone] F: [phone] F: [phone] Physical Therapy Plan of Care Date of Evaluation: 03/19/23 Date of Surgery: N/A Diagnosis: thoracolumbar, lumbarsacral intervertebral disc disorder (RL) Assessment: pt is a 52 y/o female presenting to physical therapy w/ referring diagnosis of thoracolumbar, lumbarsacral intervertebral disc disorder. Impairments include pain, decreased range of motion, decreased strength, impaired functional mobility, impaired postural awareness, and altered ambulation mechanics. pt is a good candidate for skilled PT due to age, potential remediation of impairments, typical disease/condition progression and prognosis, comorbidities, and motivation. pt would benefit from skilled PT intervention to provide a tailored strengthening and stretching exercise program, functional training, gait training, postural re-training, neuromuscular re-education, modalities as needed for pain, equipment safety demonstration. Frequency and Duration: The patient will be seen 1x/wk for 4 wks Short Term Goals: pt will be I w/ HEP to promote self-management of condition. pt will demo proper sitting posture w/ lumbar roll to promote neutral spine w/ seated ADLs. Fci Goals: pt will report <2/10 R sided neck pain w/ ADLs. pt will improve B cervical rotation by at least 10 degrees to promote ease w/ head turns for grocery shopping. Treatment Plan: Modalities to reduce pain, spasms and effusion. Manual therapy to restore motion and function. Therapeutic exercise to improve strength and flexibility. Neuromuscular re-education for posture and balance. Therapeutic activities to return to functional activities of daily living. Electronically signed by: Julieth Siu PT, DPT Please sign and return to therapist. Thank you for your referral.
--- NOTE | 2023-04-09 11:16 | MHC.PT.DC ---
[facility] [place] Office [place] Office [place] Office [address] Syed Armendariz 140 [facility] [phone] F: [phone] F: [phone] F: [phone] F: [phone] Physical Therapy Discharge Report Diagnosis: thoracolumbar, lumbarsacral intervertebral disc disorder (RL) Date of Surgery: N/A Date of Evaluation: 03/19/23 Date of Discharge: 04/09/23 Treatments to Date: 1 Cancellations to Date: 0 No Shows to Date: 2 Discharge Status: Visit Non-compliance Discharge Summary: The patient has no showed two consecutive treatment sessions. She only attended the initial evaluation. She is discharged from this physical therapy plan of care per [facility] attendance policy. Electronically signed by: Julieth Siu PT, DPT Please sign and return to therapist. Thank you for your referral.
== END 2023-04-09 11:16 | disposition home or self-care (01) ==
LOC: HO.PT 08:47
PROVIDERS: PCP Physician Assistant; Visit Provider Physician Assistant
DX: M51.9 Unspecified thoracic, thoracolumbar and lumbosacral intervertebral disc disorder (principal); M48.061 Spinal stenosis, lumbar region without neurogenic claudication
CPT/HCPCS: 97110; 97162

== ENCOUNTER 2023-04-01 07:40 | Day surgery (SDC) | payer MEDICARE, MEDICAID, SELFPAY ==
[2023-03-30 09:50] VITALS: BMI 34.0
--- NOTE | 2023-03-31 10:25 | HO.ANESPROP2 ---
Documented by User: Sherron Zimmerman NP 03/31/23 10:27 HPI - Anesthesia Eval Consult details Narrative: 52yo F for Colonoscopy PMFSH Active Problems Active Problems: All Active Problems (Updated 03/30/23 @ 09:50 by Génesis Lagunas RN) Lumbar stenosis (Acute) Colon polyps (Acute) Breast cancer screening (Acute) KEVIN (obstructive sleep apnea) (Acute) Pulmonary nodule (Acute) Acne rosacea (Acute) Dysphagia (Acute) Encounter for screening colonoscopy (Acute) Lumbar back pain (Acute) Obese (Acute) Unknown varicella vaccination status (Acute) Annual physical exam (Acute) Screening mammogram, encounter for (Acute) Colon cancer screening (Acute) Screening for diabetes mellitus (DM) (Acute) HLD (hyperlipidemia) (Acute) Seizure disorder (Acute) Smoker (Acute) GERD (gastroesophageal reflux disease) (Acute) Migraines (Acute) WILLIAM (generalized anxiety disorder) (Acute) Past Medical History Medical History H. pylori infection Aneurysm Migraine GERD (gastroesophageal reflux disease) Anxiety Seizures Pulmonary nodule Dysphagia Elevated cholesterol Personal history of tuberculosis Sleep apnea Family History Family History Father Medical history unknown Mother Hypertension Lymphoma Maternal Grandmother Diabetes Maternal Grandfather No problems noted. Family history of problems with anesthesia: No Surgical History Surgical History History of esophagogastroduodenoscopy (EGD) Hx of colonoscopy History of surgery Aneurysm Amputation of toe H/O abdominal hysterectomy History of section History of Problems with Anesthesia: No Social History Social History Housing: House Alcohol intake: current Alcohol intake frequency: holidays/special occasions only Alcohol type: hard liquor Patient Tobacco Use Status: Current someday Tobacco user Tobacco use type: Cigarette e-Cigarette/Vaping Use: Never Used Second Hand Smoke Exposure: No Use of substances other than those prescribed or required for medical reasons: Yes Are you DNR?: No Advance Directives: No Advance Directives Information Provided: Yes service: No Current occupational status: disabled Cognitive needs: No Hearing needs: No Vision needs: No Meds Allergies Allergy/AdvReac Type Severity Reaction Status Date / Time aspirin [ASA] Allergy Intermediate RASH Verified 12/03/22 11:11 grapefruit [GRAPEFRUIT] Allergy Intermediate INTERACTS Verified 12/03/22 11:11 W/MED. venlafaxine AdvReac Intermediate Agitated Verified 12/03/22 11:31 Home Medications Medication Instructions Recorded Confirmed Last Taken Type gabapentin 600 mg tablet 600 mg PO TID 03/03/21 03/30/23 04/01/23 History cyclobenzaprine 10 mg tablet 10 mg PO TID 10/22/22 03/30/23 Unknown History lamotrigine 200 mg tablet 200 mg PO BID 10/22/22 03/30/23 04/01/23 History lamotrigine 100 mg tablet 100 mg PO BEDTIME 12/03/22 03/30/23 Unknown History Exam Height,Weight and Vital Signs: Height 5 ft 3 in Weight 87.09 kg Assessment and Plan Assessment Anesthesia Assessment: Chart Reviewed Final Anesthetic Review Family History of Problems with Anesthesia: No History of Problems with Anesthesia: No Documented by User: Jo Jacobson MD 04/01/23 09:52 [facility] Active Problems Active Problems: All Active Problems (Updated 03/30/23 @ 09:05 by Jo Jacobson MD) Lumbar stenosis (Acute) Colon polyps (Acute) Breast cancer screening (Acute) KEVIN (obstructive sleep apnea) (Acute)-Not treated. Does not have CPAP machine Pulmonary nodule (Acute) Acne rosacea (Acute) Dysphagia (Acute) Encounter for screening colonoscopy (Acute) Lumbar back pain (Acute) Obese (Acute) Unknown varicella vaccination status (Acute) Annual physical exam (Acute) Screening mammogram, encounter for (Acute) Colon cancer screening (Acute) Screening for diabetes mellitus (DM) (Acute) HLD (hyperlipidemia) (Acute) Seizure disorder (Acute)- last seizure 4 weeks ago-absence seizures. Uses medications as prescribed Smoker (Acute) GERD (gastroesophageal reflux disease) (Acute) Migraines (Acute) WILLIAM (generalized anxiety disorder) (Acute) Note from PCP notes 'personal history of tuberculosis' - patient not aware. No symptoms. Not sure when diagnosed Past Medical History Medical History H. pylori infection Aneurysm Migraine GERD (gastroesophageal reflux disease) Anxiety Seizures Pulmonary nodule Dysphagia Elevated cholesterol Personal history of tuberculosis Sleep apnea Family History Family History Father Medical history unknown Mother Hypertension Lymphoma Maternal Grandmother Diabetes Maternal Grandfather No problems noted. Surgical History Surgical History History of esophagogastroduodenoscopy (EGD) Hx of colonoscopy History of surgery Aneurysm Amputation of toe H/O abdominal hysterectomy History of section Social History Social History Housing: House Alcohol intake: current Alcohol intake frequency: holidays/special occasions only Alcohol type: hard liquor Patient Tobacco Use Status: Current someday Tobacco user Tobacco use type: Cigarette e-Cigarette/Vaping Use: Never Used Second Hand Smoke Exposure: No Use of substances other than those prescribed or required for medical reasons: Yes Are you DNR?: No Advance Directives: No Advance Directives Information Provided: Yes service: No Current occupational status: disabled Cognitive needs: No Hearing needs: No Vision needs: No Meds Allergies Allergy/AdvReac Type Severity Reaction Status Date / Time aspirin [ASA] Allergy Intermediate RASH Verified 12/03/22 11:11 grapefruit [GRAPEFRUIT] Allergy Intermediate INTERACTS Verified 12/03/22 11:11 W/MED. venlafaxine AdvReac Intermediate Agitated Verified 12/03/22 11:31 Home Medications Medication Instructions Recorded Confirmed Last Taken Type gabapentin 600 mg tablet 600 mg PO TID 03/03/21 03/30/23 04/01/23 History cyclobenzaprine 10 mg tablet 10 mg PO TID 10/22/22 03/30/23 Unknown History lamotrigine 200 mg tablet 200 mg PO BID 10/22/22 03/30/23 04/01/23 History lamotrigine 100 mg tablet 100 mg PO BEDTIME 12/03/22 03/30/23 Unknown History Exam Height,Weight and Vital Signs: Height 5 ft 3 in Weight 87.09 kg Vital Signs Temp Pulse Resp BP Pulse Ox O2 Del Method 04/01/23 08:59 97.6 F 63 16 142/79 H 99 Room Air Airway Mallampati Class: II TM Dist: >3cm Neck ROM: Full Denture: Upper and Lower Heart: RRR Lungs: CTAB Assessment and Plan Assessment Anesthesia Assessment: Anesthesia Plan Discussed Final Anesthetic Review NPO: Yes ASA Class: III Final Preanesthetic Review: No Changes in Pt Med Stat, Meds/Allgs Chart Reviewed, Consent Obtained/Reviewed and Anes Risks/Benef Reviewed Patient Risk: Intermediate Procedure Risk: Low Assessment/Block/Sedation in SS: Assess/Block/Sedation-SS Anesthetic Plan Anesthetic Plan: TIVA Disposition: Standard PACU
[2023-04-01 08:59] VITALS: BP 142/79; PULSE 63; RESP 16; TEMP 36.4; O2SAT 99
[2023-04-01 09:00] VITALS: BMI 31.4
--- NOTE | 2023-04-01 09:07 | MHC.SHP ---
Pre-Procedural Eval Section A Date of Service: 04/01/23 Section B Chief Complaint: Polyp of colon Relevant Family History (Specify if Yes): No Relevant Social History: None Present Medications: see Short Stay Collaborative assessment Medical History: Significant History (H. pylori infection Aneurysm Migraine GERD (gastroesophageal reflux disease) Anxiety Seizures Pulmonary nodule Dysphagia Elevated cholesterol Personal history of tuberculosis Sleep apnea) History of Previous Operations: Relevant previous surgery/procedure and date(s) ( History of esophagogastroduodenoscopy (EGD) Hx of colonoscopy History of surgery Aneurysm Amputation of toe H/O abdominal hysterectomy History of section) Allergies: Allergies Allergy/AdvReac Type Severity Reaction Status Date / Time aspirin [ASA] Allergy Intermediate RASH Verified 12/03/22 11:11 grapefruit [GRAPEFRUIT] Allergy Intermediate INTERACTS Verified 12/03/22 11:11 W/MED. venlafaxine AdvReac Intermediate Agitated Verified 12/03/22 11:31 Review of Systems Sugical H&P ROS: Negative: Constitution, Cardiovascular, Respiratory, Neurological, Psychiatric, Hem-Onc, Allergic/Immunologic, Gastrointestinal, Genitourinary, Musculoskeletal, Integumentary, Endocrine and Eyes/Ears/Nose/Throat Exam Surgical H&P Exam: Normal: HEENT, Normal: Heart, Normal: Lungs, Normal: Extremities, Normal: Abdomen, Normal: Skin and Normal: Neurological Plan Diagnosis/Plan: Unchanged I have reviewed the history and physical and performed a pertinent physical examination on my patient. No changes have occurred unless specified. Time Spent With Patient Time: Total time managing care of this patient today ____ minutes.
--- NOTE | 2023-04-01 09:09 | W.PM.OPN ---
Operative Note Operative Note Date of Service: 04/01/23 Narrative: Operative Information Procedure Description: Colonoscopy Indication: hx of colon polyps Anesthesia: MAC COLONOSCOPY Instrument: Olympus variable stiffness pediatric scope 190L Colonoscopy Monitoring: Vital signs and clinical assessment, continuous EKG monitoring, Pulse oximetry, Carbon Dioxide monitoring and blood pressure monitoring were done throughout the procedure. Colon withdrawal time was 10 minutes. Procedure: The patient was placed in the left lateral decubitis position and pre-procedure medications were administered. After a digital rectal examination of the ano-rectum, the video colonoscope was inserted into the rectum and advanced through the colon to the cecum/TI. The colonoscope was slowly withdrawn in a retrograde panoramic fashion and the colon mucosa was carefully examined including a retroflexed view of the rectum. Findings and interventions are described below. Procedure Difficulty: easy Findings: Terminal Ileum-normal Cecum:normal Ascending Colon: normal Transverse Colon -normal Descending Colon:normal Sigmoid Colon: 10-12 mm sessile polyp removed with cold snare Rectum: Retroflexion with small internal hemorrhoids, grade I with skin tags, x 4 sessile polyps, appeared hyperplastic, removed with cold forceps Anorectum - normal Colon preparation: [place] Bowel Preparation Scale Right colon; 2 Transverse colon: 2 Left colon; 2 (0 = Unprepared colon segment with mucosa not seen due to solid stool that cannot be cleared. 1 = Portion of mucosa of the colon segment seen, but other areas of the colon segment not well seen due to staining, residual stool and/or opaque liquid. 2 = Minor amount of residual staining, small fragments of stool and/or opaque liquid, but mucosa of colon segment seen well. 3 = Entire mucosa of colon segment seen well with no residual staining, small fragments of stool or opaque liquid) Impression and Post Procedure Diagnosis: polyps internal hemorrhoids Plan: High fiber diet leaflet Avoid straining at stool, epsom salts and sitz bath, anusol supps or cream Repeat Colonoscopy in 5 years due to hx of polyps or earlier if clinically indicated refer Dr Phillips as she has been having symptomatic hemorrhoids Above findings were reviewed with the patient and relevant handouts were provided if indicated.
[2023-04-01 10:06] VITALS: BP 88/47; PULSE 57; RESP 16; TEMP 36.1; O2SAT 97
[2023-04-01 10:21] VITALS: BP 117/74; PULSE 64; RESP 16; O2SAT 98
[2023-04-01 10:27] VITALS: BP 122/78; PULSE 61; RESP 16; TEMP 36.6; O2SAT 98
== END 2023-04-01 10:59 | disposition home or self-care (01) ==
PROVIDERS: PCP Physician Assistant; Visit Provider Internal Medicine Gastroenterology
PROC: 0DJD8ZZ Inspection of Lower Intestinal Tract, Via Natural or Artificial Opening Endoscopic (ICD-10-PCS; CPT 45378; principal; 2023-04-01 11:00)
DX: Z12.11 Encounter for screening for malignant neoplasm of colon (principal); Z86.010 Personal history of colon polyps; K63.5 Polyp of colon; K62.1 Rectal polyp; K64.0 First degree hemorrhoids; K64.4 Residual hemorrhoidal skin tags; K21.9 Gastro-esophageal reflux disease without esophagitis; R13.10 Dysphagia, unspecified; E78.00 Pure hypercholesterolemia, unspecified; G47.33 Obstructive sleep apnea (adult) (pediatric); F41.9 Anxiety disorder, unspecified; R56.9 Unspecified convulsions; R91.1 Solitary pulmonary nodule; Z79.899 Other long term (current) drug therapy; Z88.8 Allergy status to other drugs, medicaments and biological substances; Z86.11 Personal history of tuberculosis; Z89.429 Acquired absence of other toe(s), unspecified side; Z98.890 Other specified postprocedural states; F17.210 Nicotine dependence, cigarettes, uncomplicated
CPT/HCPCS: 45385; 45380; 88305; J2704

== ENCOUNTER → 2023-04-01 07:40 | Outpatient (BNV) | payer MEDICARE, MEDICAID, SELFPAY | PROVIDERS: PCP Physician Assistant; Visit Provider Internal Medicine Gastroenterology | DX: Z12.11 Encounter for screening for malignant neoplasm of colon (principal); K63.5 Polyp of colon; Z86.010 Personal history of colon polyps; K64.0 First degree hemorrhoids | CPT/HCPCS: 45380; 45385 ==

== ENCOUNTER 2023-07-08 10:55 | Outpatient (AMB) | payer MEDICARE, MEDICAID, SELFPAY ==
[2023-07-08 10:56] VITALS: BP 116/78; PULSE 65; O2SAT 95; BMI 29.5
--- NOTE | 2023-07-08 10:56 | MHC.PC.OV ---
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 venlafaxine Adverse Reaction (Intermediate, Verified 07/08/23 11:12) Agitated Medication List - Last Reconciled 07/08/23 by Zackary Hilton PA-C atorvastatin 20 mg PO DAILY butalbital-acetaminophen 50-325 mg 1 tab PO BID PRN 10 days cyclobenzaprine 10 mg PO TID fluticasone propionate 50 mcg/actuation 1 spray intranasal DAILY gabapentin 600 mg PO TID lamotrigine 100 mg PO BEDTIME lamotrigine 200 mg PO BID omega-3 fatty acids-fish oil 340-1,000 mg 1 cap PO DAILY pantoprazole 40 mg PO DAILY sertraline 50 mg PO DAILY 90 days sumatriptan succinate 50 mg PO BID PRN 30 days Tobacco use date assessed: 07/08/23 Dental Screening Dental Screen Date: 07/08/23 Did you have a dental visit in the last 12 months?: Yes Did you have a dental problem in the last 6 months where you did not have access to dental care?: No Was dental information given to patient?: Patient has dentist HPI f/u hyperlipidemia ,seizure disorder HPI Details Melissa is a 52-year-old female here today for follow-up visit. ? Patient has a pmhx significant for tobacco dependence, sz disorder, depression, KEVIN, hypersomnia, Brain anuerysm with coiling. ? .. ? Sz disorder: Does report having focused sz, Is on anti- epileptics.? Has now been seening another Neurology in [place] ( Renetta) is has been sent for ambulatory EEGs..? Her lamotrigine was increased.? Has gotten a CT of brain showing evidence previous surgical clips from aneurysm repair. She has recently had brain imaging which continues to show her brain aneurysm. No reports of recent seizures activity. . Tobacco dependence: Has quit smoking over the last year? has Chantix available to our though does not currently use this medication. .. AV brain aneurysm - s/p coiling in 2011 . Recently had CTA brain showing the AVM malformation. IS followed by Nurologist in [place] , considering gamma knife radiation treatment. ? .. ? Depression: well controlled. Patient feels she is on the right dose of her SSRI. .. Anxiety: She does report her anxiety has been much more elevated lately due to personal issues and worrying about her AVM of her brain. ? .. ? Migraines:? Now followed by Neurology,? Patient has seldomly been using firocet which works well. Has gotten good relief from Imitrex . No aura reported with migraines.?? [facility] Medical History (Updated 07/08/23 @ 11:20 by Zackary Hilton PA-C) H. pylori infection Aneurysm Migraine GERD (gastroesophageal reflux disease) Anxiety Seizures Pulmonary nodule Dysphagia Elevated cholesterol Personal history of tuberculosis Sleep apnea Surgical History History of esophagogastroduodenoscopy (EGD) Hx of colonoscopy History of surgery Aneurysm Amputation of toe H/O abdominal hysterectomy History of section Family History Father Medical history unknown Mother Hypertension Lymphoma Maternal Grandmother Diabetes Maternal Grandfather No problems noted. Social History Housing: House Alcohol intake: current Alcohol intake frequency: holidays/special occasions only Alcohol type: hard liquor Patient Tobacco Use Status: Current someday Tobacco user Tobacco use type: Cigarette e-Cigarette/Vaping Use: Never Used Second Hand Smoke Exposure: No service: No Current occupational status: disabled Cognitive needs: No Hearing needs: No Vision needs: No Questionnaire PHQ-9 Over the last 2 weeks, how often have you been bothered by any of the following problems? 1. Little interest or pleasure in doing things: more than half the days 2. Feeling down, depressed, or hopeless: nearly every day 3. Trouble falling or staying asleep, or sleeping too much: more than half the days 4. Feeling tired or having little energy: nearly every day 5. Poor appetite or overeating: several days 6. Feeling bad about yourself - or that you are a failure or have let yourself or your family down: more than half the days 7. Trouble concentrating on things, such as reading the newspaper or watching television: nearly every day 8. Moving or speaking so slowly that other people could have noticed. Or the opposite - being so fidgety or restless that you have been moving around a lot more than usual: more than half the days 9. Thoughts that you would be better off or of hurting yourself in some way: several days Total score: 19 Depression Screening Interpretation: Positive Depression Screening Follow-up: Existing condition Depression Screening Done: Yes 46150 - PHQ-9 Billing: Yes Source: Developed by Drs. Yuri Vann, Yanira King, Heber Sepulveda and colleagues, with an educational bebe from [employer]. Thrive Questionnaire Date Thrive assessed: 07/08/23 I am a: Patient What is your living situation today?: I have a steady place to live Within the past 12 months, did the food you bought not last and you didn't have the money to get more?: Never true Within the past 12 months, did you worry whether your food would run out before you got money to buy more?: Never true Do you have trouble paying for medicines?: No Do you have trouble getting transportation to medical appointments?: No Do you have trouble paying your heating and electricity bill?: No Do you have trouble taking care of your child, family member or friend?: No Do you have trouble with day-to-day activities such as bathing, preparing meals, shopping, managing finances, etc.?: No Are you currently unemployed and looking for a job?: No Are you interested in more education?: No Please select the resources that you would like help with: None Currently or been in a relationship where the following occur: no concerns reported THRIVE Score: 0 AUDIT C Alcohol Use Questionnaire (AUDIT-C) 1. How often do you have a drink containing alcohol?: Never 3. How often do you have six or more drinks on one occasion?: Never Total Score: 0 WILLIAM-7 AMB Questionnaire WILLIAM-7 Date WILLIAM - 7 assessed: 07/08/23 Feeling nervous, anxious, or on edge: 2 = More than half the days Not being able to stop or control worryin = More than half the days Worrying too much about different things: 3 = Nearly every day Trouble relaxin = Nearly every day Being so restless that it is hard to sit still: 1 = Several days Becoming easily annoyed or irritable: 3 = Nearly every day Feeling afraid as if something awful might happen: 3 = Nearly every day Total WILLIAM-7 score (0-4 normal; 5-9 mild; 10-14 moderate; 15-21 severe): 17 Source: Developed by Drs. Yuri Vann, Yanira King, Heber Sepulveda and colleagues, with an educational bebe from [employer]. WILLIAM-7 Assessment Billing WILLIAM-7 Assessment Tool: WILLIAM-7 Assessment 23700 Review of Systems Const Denies headache(s) Eyes Denies loss of vision ENT Denies vertigo, Denies dizziness, Denies headache(s) and Denies sore throat Card Denies chest pain, Denies leg edema and Denies lightheadedness Resp Denies cough, Denies hemoptysis and Denies wheezing GI Denies abdominal pain, Denies melena, Denies constipation, Denies diarrhea and Denies vomiting Denies urinary frequency, Denies dysuria and Denies urinary urgency Musc Denies arthralgias, Denies joint swelling, Denies numbness and Denies tingling Neuro Denies Abnormal speech present, Denies behavioral changes, Denies vertigo, Denies dizziness, Denies headache(s), Denies loss of vision, Denies memory loss, Denies numbness and Denies tingling Psych Denies anxiety, Denies behavioral changes, Denies depression, Denies memory loss and Denies panic attacks Westley/Lymph Denies easy bleeding and Denies easy bruising Aller/Immun Denies wheezing Physical exam (Primary Care) Vital Signs: Last Vital Signs Pulse 65 07/08/23 10:56 BP 116/78 07/08/23 10:56 Pulse Ox 95 07/08/23 10:56 Oxygen Delivery Method Room Air 07/08/23 10:56 BMI result Body Mass Index 29.5 Tobacco/Smoking Status: Tobacco use Status Tobacco use date assessed 07/08/23 07/08/23 10:57 Patient Tobacco Use Status Current someday Tobacco 07/08/23 10:57 Tobacco use type Cigarette 07/08/23 10:57 e-Cigarette/Vaping Use Never Used 07/08/23 10:57 PHQ-9: PHQ-9 Score PHQ-9: Total score 19 07/08/23 13:11 Depression Screening Interpretation: Positive Depression Screening Follow-up: Existing condition Thrive Assessment: Date of Thrive Assessment Date Thrive assessed 07/08/23 07/08/23 11:07 Currently or been in a relationship where the following occur: no concerns reported Const General: healthy appearing, no acute distress, alert and awake Nutritional Appearance: well nourished Orientation/consciousness: oriented to person, oriented to place and oriented to time HENMT Ears: TM's normal bilaterally General nose exam: Normal nasal mucous membranes and turbinates present Eyes Conjunctivae: conjunctivae normal Sclerae: sclerae normal Pupils: Equal, round and reactive pupils present Neck Neck: Yes no lymphadenopathy and Yes no JVD Thyroid: Thyroid normal Carotids: no bruits Resp Effort & Inspection: normal respiratory effort and not tachypneic Auscultation: no crackles, no rales, no rhonchi and no wheezes Cardio Rate: regular rate Rhythm: regular rhythm Heart sounds: no murmurs and normal S1 and S2 GI Palpation (GI): Soft to palpation, nontender, no hepatomegaly and no splenomegaly Auscultation: normal bowel sounds Skin General skin exam: no rashes or lesions noted and dry skin Neuro General: oriented to person, oriented to place and oriented to time Cranial nerves: Yes Equal, round and reactive pupils present Speech: No Abnormal speech present Gait exam (Neuro): Normal gait present Motor exam (neuro): no tremor noted Extrem Right upper extremity: full ROM Left upper extremity: full ROM Right lower extremity: full ROM; no edema Left lower extremity: full ROM; no edema Psych Mental Status: mental status grossly normal Speech and movement: Normal speech and movement present Affect: normal affect Attitude: cooperative Thought process: Normal thought process present Assessment and Plan Assessment & Plan (1) Seizure disorder: Code(s): G40.909 - Epilepsy, unspecified, not intractable, without status epilepticus Plan: Patient now followed by neurologist. Has been started on seizure medication and up titrating per response. She reports she may have had a sz duing a procedure at [facility] though this is unclear. She hopes on reduction in seizure activity when she is able to treat her AVM (2) HLD (hyperlipidemia): Code(s): E78.5 - Hyperlipidemia, unspecified Qualifiers: Hyperlipidemia type: mixed hyperlipidemia Qualified Code(s): E78.2 - Mixed hyperlipidemia Plan: Patient's most recent lipid panel showing good control of total cholesterol and LDL. Continues on moderate dose statin. Goal LDL to remain below 130 (3) WILLIAM (generalized anxiety disorder): Code(s): F41.1 - Generalized anxiety disorder Plan: She reports her depression anxiety has been on an off . She has been a bit more anxious as of late due to her brain aneurysm. She is interested in an as needed medication for her anxiety. She believes the sertraline is helpful though only partially. (4) Aneurysm: Comment: paraopthalmic w/coiling 2010 Code(s): I72.9 - Aneurysm of unspecified site Plan: Patient recently seen at [facility] for CTA brain. Aneurysm can not undergo endovascular procedure. She has been referred to [facility] for gamma knife localized radiation treatment consideration. Medications: New lorazepam 0.5 mg PO DAILY 7 days PRN 7 tabs 0RF anxiety F41.1 - Generalized anxiety disorder Coding Level of Care Code Est Pt Level 4 (30967) Diagnoses Seizure disorder G40.909 Mixed hyperlipidemia E78.2 Hyperlipidemia type: mixed hyperlipidemia WILLIAM (generalized anxiety disorder) F41.1 Aneurysm I72.9 Additional Codes WILLIAM-7 Assessment Billing - WILLIAM-7 Assessment Tool: WILLIAM-7 Assessment [id number] ([id number])
== END 2023-07-08 11:45 | disposition home or self-care (01) ==
PROVIDERS: PCP Physician Assistant; Visit Provider Physician Assistant
DX: G40.909 Epilepsy, unspecified, not intractable, without status epilepticus (principal); E78.2 Mixed hyperlipidemia; F41.1 Generalized anxiety disorder; Q28.2 Arteriovenous malformation of cerebral vessels
CPT/HCPCS: 99214